=== PATIENT | male | born 2005 | race Caucasian/White ===

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

== ENCOUNTER 2024-10-17 16:16 | Emergency (ER) | payer OTHER ==
[~2024-10-17] VITALS: Ht 182.9 cm; Wt 108.9 kg
[~2024-10-17 16:16] MED LIST changes: +ACET500 PO; +Ibuprofen600 MG PO; +LIDO700A20 TOP
[2024-10-17 16:29] VITALS: BP 152/83
[2024-10-17] MEDS ORDERED: Diphth,Pertuss(Acell),Tet Vac 0.5 ML VIAL IM ONE (16:30)
== END 2024-10-17 18:37 | disposition home or self-care (01) ==
LOC: ER 16:16
DX: S81.011A Laceration without foreign body, right knee, initial encounter (principal); V89.2XXA Person injured in unspecified motor-vehicle accident, traffic, initial encounter
CPT/HCPCS: 12002; 90471; 90715; 99282-25

== ENCOUNTER 2025-07-01 06:14 | Day surgery (SDC) | payer OTHER ==
[~2025-07-01] VITALS: Ht 182.9 cm; Wt 99.5 kg
[2025-07-01] VITALS (8 sets, daily range): BP systolic 137–156; BP diastolic 87–100
[~2025-07-01 06:14] MED LIST changes: +BUPR150ER PO; +CYCL10 PO; +CeFAZolin Sodium 2,000 MG in NS 100 ML IV SCH; +OMEP20ER PO
--- NOTE | 2025-07-01 06:34 | NUR ---
History, Chart, Medications and Allergies reviewed before start of procedure. Patient States Post-Procedure ride home has been arranged.
[2025-07-01] MEDS ORDERED: Bupivacaine 0.5% HCl 5 MG/ML 30MLVIAL ONE (06:57)
[2025-07-01] MEDS ORDERED: Rocuronium Bromide 10 MG/ML 5ML Injection IV ONE ×2 (07:13→08:11)
[2025-07-01] MEDS ORDERED: FentaNYL Citrate 50 MCG/ML 5 ML Injection ONE (07:13)
[2025-07-01] MEDS ORDERED: FentaNYL Citrate 50 MCG/ML 2 ML Injection ONE ×3 (07:13→09:03)
[2025-07-01] MEDS ORDERED: Midazolam HCl 1MG / ML 2ML Vial ONE (07:13)
[2025-07-01] MEDS ORDERED: Dexamethasone Sod Phos 10 MG/ML 1ML VIAL ONE (07:16)
[2025-07-01] MEDS ORDERED: FentaNYL Citrate 50 MCG/ML 2 ML Injection IV PRN (07:55)
[2025-07-01] MEDS ORDERED: HYDROmorphone HCl/Pf 1MG SYR IV PRN (08:00)
[2025-07-01] MEDS ORDERED: Morphine Sulfate 4 MG/1 ML Injection IV PRN (08:00)
[2025-07-01] MEDS ORDERED: Ondansetron HCl 2 MG / ML 2ML Vial IV PRN (08:05)
[2025-07-01] MEDS ORDERED: Ketorolac Tromethamine 30mg Vial IV PRN (08:05)
[2025-07-01] MEDS ORDERED: Ondansetron HCl 2 MG / ML 2ML Vial ONE (08:26)
[2025-07-01] MEDS ORDERED: Sugammadex Sodium 200 MG/2ML SDV (100 MG/ML) ONE (08:26)
[2025-07-01] MEDS ORDERED: HYDROcodone 5-APAP 325 TAB PO PRN (09:10)
[2025-07-01] MEDS ORDERED: Ketorolac Tromethamine 30mg Vial ONE (09:26)
== END 2025-07-01 10:11 | disposition home or self-care (01) ==
LOC: ORSCMMR 06:14 → ORD 07:30 → ORSCMMR 07:30
PROVIDERS: Surgery
PROC: BF031ZZ Plain Radiography of Gallbladder and Bile Ducts using Low Osmolar Contrast (ICD-10-PCS; principal; 2025-07-01 07:30)
PROC: 0FT44ZZ Resection of Gallbladder, Percutaneous Endoscopic Approach (ICD-10-PCS; principal; 2025-07-01 07:30)
DX: K80.10 Calculus of gallbladder with chronic cholecystitis without obstruction (principal); K21.9 Gastro-esophageal reflux disease without esophagitis; F41.9 Anxiety disorder, unspecified; F32.A Depression, unspecified; Z79.899 Other long term (current) drug therapy; F17.290 Nicotine dependence, other tobacco product, uncomplicated
CPT/HCPCS: 74300; 88304; C1729; J0690; J1100; J1885; J2250; J2405; J2704; J3010; J7120